=== PATIENT | female | born 1970 | race Caucasian/White ===

== ENCOUNTER 2019-09-05 14:18 | Outpatient (CLI) | payer BC, SELFPAY ==
--- NOTE | ~2019-09-05 | XR_ITS ---
XR shoulder LT min 2V DATE: 09/05/2019 14:45 INDICATION: Chronic left shoulder pain. Limited range of motion. Repetitive motion at work. TECHNIQUE: 4 views COMPARISON: None FINDINGS: No fracture or dislocation, periosteal reaction or bone destruction or abnormal soft tissue calcification is detected. Normal alignment at the acromioclavicular and glenohumeral joints. IMPRESSION: Negative Reviewed, dictated and finalized at location B. IMPRESSION: Negative
== END 2019-09-05 14:19 | disposition home or self-care (01) ==
LOC: ANHIMG 14:28
PROVIDERS: PCP Family Medicine; Visit Provider Family Medicine
DX: M25.512 Pain in left shoulder (principal)
CPT/HCPCS: 73030

== ENCOUNTER → 2021-01-02 11:47 | Outpatient (CLI) | payer BC, MEDICAID, SELFPAY ==
--- NOTE | ~2021-01-02 | MM_ITS ---
EXAMINATION: MM screening ricarda BI w christos HISTORY: Screening mammogram TECHNIQUE: Craniocaudal and mediolateral oblique 3-D tomosynthesis images were obtained and synthetic 2-D images were generated. Bilateral rotated lateral cc views. CAD analysis was submitted and interp reted. COMPARISON: Numerous , 07/21/2011 bilateral digital screening and diagnostic mammograms, res pectively BREAST PARENCHYMAL COMPOSITION: There are scattered areas of fibroglandular density. FINDINGS: There are pleomorphic microcalcifications within an approximately 8.5 x 12.5 mm left axilla ry lymph node. There may be microcalcifications within an approximately 7.7 x 13 mm right axillary ly mph node. Differential diagnosis for lymph node calcifications include tattoo, granulomatous disease, treated lymphoma, ductal carcinoma in situ. No significant calcifications are detected elsewhere in the breasts. Bilateral diagnostic mammogram is recommended with magnification views. Otherwise there is no evidence of suspicious mass, calcification, or architectural distortion to sugg est malignancy in either breast. There has been no other suspicious interval change. IMPRESSION: 1. Axillary lymph node calcifications 2. Bilateral diagnostic mammography is recommended BI-RADS Category 0: Incomplete: Needs additional imaging evaluation. Reviewed, dictated and finalized at location A.
== END ==
PROVIDERS: PCP Family Medicine; Visit Provider Family Medicine
DX: Z12.31 Encounter for screening mammogram for malignant neoplasm of breast (principal); R92.8 Other abnormal and inconclusive findings on diagnostic imaging of breast
CPT/HCPCS: 77063; 77067

== ENCOUNTER → 2021-03-04 08:52 | Outpatient (CLI) | payer OTHER, SELFPAY ==
--- NOTE | ~2021-03-04 | MM_ITS ---
EXAMINATION: MM diagnostic mammo BI HISTORY: Axillary lymph node calcifications on screening mammogram of 01/02/2021 TECHNIQUE: Additional ML images of both breasts were performed. Bilateral MLO magnification views of the axilla. CAD analysis was submitted and interpreted. High resolution bilateral axillary ultrasound was performed. COMPARISON: 01/02/2021 bilateral digital screening mammogram FINDINGS: MAMMOGRAPHIC FINDINGS: Bilateral smooth circumscribed axillary lymph nodes are noted, measuring up to approximately 2 cm maximal dimension on the right and 12 mm on the left. Normal-appearing oval or re niform shape, presence of fatty hilum, smooth margins are noted but the lymph nodes are more prominen t compared to prior studies of 08/09/2014 and 07/17/2011 There are calcifications within 2 or more axillary lymph nodes bilaterally. The differential diagnosi s of calcified axillary lymph nodes includes benign as well as malignant processes: -Occult metastatic breast carcinoma -Extramammary metastasis (including ovarian or thyroid malignancy) -Granulomatous disease (histoplasmosis, tuberculosis or sarcoid for example -Gold deposits -Foreign bodies (tattoo, talcum) ULTRASOUND: No suspicious mass or shadowing is evident in the right axillary area. A 1 x 1.3 x 1.9 cm left axillary lymph node is noted, with relatively uniform thickness and echogenic ity of the cortex and prominent fatty hilus. IMPRESSION: 1. Nonspecific bilateral calcified axillary lymph nodes 2. Consider PET/CT imaging to evaluate for possible malignant process from breast or other site metas tatic to the axillary region. BI-RADS Category 0: Incomplete: Needs additional imaging evaluation. Reviewed, dictated and finalized at location A. IMPRESSION: 1. Nonspecific bilateral calcified axillary lymph nodes 2. Consider PET/CT imaging to evaluate for possible malignant process from [address] or other site metastatic to the axillary region. BI-RADS Category 0: Incomplete: Needs additional imaging evaluation.
--- NOTE | ~2021-03-04 | US_ITS ---
US axilla BI DATE: 03/04/2021 09:50 Please refer to combined bilateral diagnostic mammogram and bilateral axillary ultrasound report of . IMPRESSION: BI-RADS Category 0: Incomplete; need additional imaging evaluation Reviewed, dictated and finalized at Location A. Reviewed, dictated and finalized at location A.
== END ==
PROVIDERS: PCP Family Medicine; Visit Provider Family Medicine
DX: R92.8 Other abnormal and inconclusive findings on diagnostic imaging of breast (principal)
CPT/HCPCS: 76882; 77066

== ENCOUNTER 2022-01-12 14:53 | Outpatient (CLI) | payer OTHER, SELFPAY ==
--- NOTE | ~2022-01-12 | XR_ITS ---
XR lumbar spine min 4V DATE: 01/12/2022 15:28 INDICATION: Chronic low back pain TECHNIQUE: AP, bilateral oblique, lateral and coned lateral lumbosacral views COMPARISON: None FINDINGS: Mild levoscoliosis. There is degenerative change at the lumbar apophyseal joints at L4-5 and L5-S1 with associated grade 1 anterolisthesis at L4-5. No spondylolisthesis. The lumbar pedicles are intact. No fracture or bone destruction is detected. There is mild degenerative disc disease of the lumbar spine, but disc spaces are relatively preserved . The sacroiliac joints appear normal. IMPRESSION: Mild levoscoliosis Mild degenerative disc disease Degenerative change at the apophyseal joints at L4-5 and L5-S1 with associated grade 1 anterolisthesi s at L4-5 Reviewed, dictated and finalized at location B. IMPRESSION: Mild levoscoliosis Mild degenerative disc disease Degenerative change at the apophyseal joints at L4-5 and L5-S1 with associated grade 1 anterolisthesis at L4-5
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
--- NOTE | ~2022-01-12 | XR_ITS ---
XR hip LT min 3V w AP pelvis DATE: 01/12/2022 15:29 INDICATION: Bilateral hip pain, osteoarthritis TECHNIQUE: AP pelvis. AP, lateral and crosstable lateral views of left hip COMPARISON: None FINDINGS: No pelvic fracture or bone destruction. The pubic symphysis and sacroiliac joints are intac t. Hip joint spaces are symmetric and well preserved. No fracture or dislocation, avascular necrosis or bone destruction of the left hip. IMPRESSION: No significant abnormality Reviewed, dictated and finalized at location B. IMPRESSION: No significant abnormality
== END 2022-01-12 14:54 | disposition home or self-care (01) ==
PROVIDERS: PCP Family Medicine; Visit Provider Family Medicine
DX: M25.552 Pain in left hip (principal); M51.36 Other intervertebral disc degeneration, lumbar region; M47.892 Other spondylosis, cervical region
CPT/HCPCS: 72050; 72110; 73502